=== PATIENT | male | born 1930 | race Asian ===

== ENCOUNTER → 2016-05-14 | Outpatient (CLI) | payer MEDICARE, OTHER ==
[~2016-05-14] MED LIST: ASPI81 PO; ATOR40TA28 PO; CARV12 PO; ESOM20CA31 PO; FINA5TAB41 PO; LISI40TA4 PO; METF500T4 PO; MULT-264 PO; NIFE60TA71 PO; TAMS0.4C32 PO
== END | disposition home or self-care (01) ==
LOC: LABPV 09:56
PROVIDERS: ATTEND Urology
DX: C61 Malignant neoplasm of prostate (principal)
CPT/HCPCS: 84153

== ENCOUNTER → 2016-08-23 | Outpatient (CLI) | payer MEDICARE, OTHER | END | disposition home or self-care (01) | LOC: RADMN 12:39 | PROVIDERS: ATTEND Physical Medicine & Rehabilitation Spinal Cord Injury Medicine | DX: M41.86 Other forms of scoliosis, lumbar region (principal); M51.86 Other intervertebral disc disorders, lumbar region; M48.06 Spinal stenosis, lumbar region; M43.16 Spondylolisthesis, lumbar region; M51.26 Other intervertebral disc displacement, lumbar region; Q05.7 Lumbar spina bifida without hydrocephalus; M54.17 Radiculopathy, lumbosacral region; M17.0 Bilateral primary osteoarthritis of knee | CPT/HCPCS: 72148 ==

== ENCOUNTER → 2016-09-12 | Outpatient (CLI) | payer MEDICARE, OTHER | END | disposition home or self-care (01) | LOC: RADMN 09:03 | PROVIDERS: ATTEND Physical Medicine & Rehabilitation Spinal Cord Injury Medicine | DX: I65.23 Occlusion and stenosis of bilateral carotid arteries (principal); I77.89 Other specified disorders of arteries and arterioles | CPT/HCPCS: 70544; 70547 ==

== ENCOUNTER → 2016-09-21 | Outpatient (CLI) | payer MEDICARE, OTHER | END | disposition home or self-care (01) | LOC: RADPV 12:35 | PROVIDERS: ATTEND Internal Medicine | DX: S93.401A Sprain of unspecified ligament of right ankle, initial encounter (principal); I70.201 Unspecified atherosclerosis of native arteries of extremities, right leg; M25.471 Effusion, right ankle; Z87.81 Personal history of (healed) traumatic fracture; X58.XXXA Exposure to other specified factors, initial encounter; Y93.9 Activity, unspecified; Y92.9 Unspecified place or not applicable; Y99.9 Unspecified external cause status ==

== ENCOUNTER 2016-11-03 12:36 | Emergency (ER) | payer MEDICARE, OTHER ==
[~2016-11-03] VITALS: Ht 165.1 cm; Wt 62.0 kg
[2016-11-03 13:02] LABS: GLUCOSE,POINT OF CARE 130 MG/DL (70-110)
[2016-11-03 13:18] LABS: BASOPHILS # (AUTO) 0.03 K/uL (0.00-0.20); BASOPHILS % (AUTO) 0.5 % (0.0-2.0); EOSINOPHILS # (AUTO) 0.23 K/uL (0.00-0.70); EOSINOPHILS % (AUTO) 4.14 % (1.0-6.0); HEMATOCRIT 38.5 % (41-53); HEMOGLOBIN 12.5 g/dL (13.5-17.5); LYMPHOCYTES # (AUTO) 1.6 K/uL (1.0-4.8); LYMPHOCYTES % (AUTO) 27.9 % (22.0-44.0); MEAN CORPUSCULAR HEMOGLOBIN 29.1 pg (26.0-34.0); MEAN CORPUSCULAR HGB CONC 32.5 G/dL (31.0-37.0); MEAN CORPUSCULAR VOLUME 90 fL (80-100); MONOCYTES # (AUTO) 0.6 K/uL (0.1-1.0); MONOCYTES % (AUTO) 10.4 % (2.0-9.0); NEUTROPHILS # (AUTO) 3.2 K/uL (1.8-7.7); NEUTROPHILS % (AUTO) 57.1 % (40.0-70.0); PLATELET COUNT (AUTO) 237 K/uL (150-450); WHITE BLOOD COUNT (AUTO) 5.6 K/uL (4.5-11.0)
[2016-11-03 13:28] LABS: APPEARANCE,URINE TURBID (CLEAR); GLUCOSE, URINE (UA) NEGATIVE (NEGATIVE); KETONES,URINE 15 mg/dL (NEGATIVE); LEUKOCYTE ESTERASE ,URINE MODERATE (NEGATIVE); OCCULT BLOOD,URINE LARGE (NEGATIVE); PROTEIN,URINE SEE CONFIRM (NEGATIVE)
[2016-11-03 13:31] LABS: ADD UA MICROSCOPIC YES
[2016-11-03 13:35] LABS: RBC,URINE Full Field /HPF (0-2); SULFOSALICYLIC ACID,URINE 3+ (Negative); WBC,URINE 26-50 /HPF (0-5)
[2016-11-03 14:26] LABS: CALCIUM, TOTAL 9.3 mg/dL (8.8-10.5); CREATININE 1.43 mg/dL (0.60-1.30)
[2016-11-03 15:00] VITALS: BP 125/78
[2016-11-03] MEDS ORDERED: LIDOCAINE HCL/PF 1% 2 ML VIAL IM ONE (15:00)
[2016-11-03] MEDS ORDERED: CefTRIAXone SODIUM 1 GM/VIAL IM ONE (15:00)
== END 2016-11-03 15:13 | disposition home or self-care (01) ==
LOC: EMS 12:38
DX: N39.0 Urinary tract infection, site not specified (principal); E11.9 Type 2 diabetes mellitus without complications; I10 Essential (primary) hypertension; Z85.46 Personal history of malignant neoplasm of prostate; Z79.82 Long term (current) use of aspirin; Z95.5 Presence of coronary angioplasty implant and graft
CPT/HCPCS: 36415; 80048; 81001; 82962; 85025; 87086; 96372; 99284; J0696; J3490

== ENCOUNTER → 2016-12-28 | Outpatient (CLI) | payer MEDICARE, OTHER ==
[~2016-12-28] MED LIST changes: -ATOR40TA28 PO; -ESOM20CA31 PO; -NIFE60TA71 PO
== END | disposition home or self-care (01) ==
LOC: RADPV 08:55
PROVIDERS: ATTEND Internal Medicine Cardiovascular Disease
DX: I08.0 Rheumatic disorders of both mitral and aortic valves (principal)
CPT/HCPCS: 93306

== ENCOUNTER 2017-02-04 09:34 | Emergency (ER) | payer MEDICARE, OTHER ==
[~2017-02-04] VITALS: Ht 165.1 cm; Wt 61.4 kg
[2017-02-04 09:45] VITALS: BP 142/73
[2017-02-04 09:52] LABS: GLUCOSE,POINT OF CARE 105 MG/DL (70-110)
== END 2017-02-04 11:12 | disposition left against medical advice (07) ==
LOC: EMS 09:34
DX: R10.9 Unspecified abdominal pain (principal); E11.9 Type 2 diabetes mellitus without complications; I10 Essential (primary) hypertension; Z95.1 Presence of aortocoronary bypass graft; Z53.21 Procedure and treatment not carried out due to patient leaving prior to being seen by health care provider
CPT/HCPCS: 82962

== ENCOUNTER → 2017-03-26 | Outpatient (CLI) | payer MEDICARE, OTHER | END | disposition home or self-care (01) | LOC: RADPV 08:49 | PROVIDERS: ATTEND Internal Medicine Cardiovascular Disease | DX: I70.203 Unspecified atherosclerosis of native arteries of extremities, bilateral legs (principal) | CPT/HCPCS: 93925 ==

== ENCOUNTER → 2017-04-19 | Outpatient (CLI) | payer MEDICARE, OTHER | END | disposition home or self-care (01) | LOC: RADPV 10:28 | PROVIDERS: ATTEND Internal Medicine | DX: R05 Cough (principal); I25.10 Atherosclerotic heart disease of native coronary artery without angina pectoris; I70.0 Atherosclerosis of aorta | CPT/HCPCS: 71046 ==

== ENCOUNTER → 2017-08-16 | Outpatient (CLI) | payer MEDICARE, OTHER ==
[~2017-08-16] MED LIST changes: -METF500T4 PO; +METF500T6 PO
== END | disposition home or self-care (01) ==
LOC: RADMN 08:30
PROVIDERS: ATTEND Internal Medicine
DX: I67.82 Cerebral ischemia (principal); R90.82 White matter disease, unspecified
CPT/HCPCS: 70551

== ENCOUNTER → 2017-10-08 | Outpatient (CLI) | payer MEDICARE, OTHER | END | disposition home or self-care (01) | LOC: RADPV 09:52 | PROVIDERS: ATTEND Internal Medicine | DX: N18.3 Chronic kidney disease, stage 3 (moderate) (principal); N40.1 Benign prostatic hyperplasia with lower urinary tract symptoms | CPT/HCPCS: 76770 ==

== ENCOUNTER → 2017-12-04 | Outpatient (CLI) | payer MEDICARE, OTHER ==
[2017-12-04 15:07] LABS: BASOPHILS % (AUTO) 0.6 % (0.0-2.0); EOSINOPHILS % (AUTO) 4.7 % (1.0-6.0); HEMATOCRIT 36.6 % (41-53); HEMOGLOBIN 11.8 g/dL (13.5-17.5); LYMPHOCYTES # (AUTO) 1.8 K/uL (1.0-4.8); LYMPHOCYTES % (AUTO) 34.3 % (22.0-44.0); MEAN CORPUSCULAR HEMOGLOBIN 26.7 pg (26.0-34.0); MEAN CORPUSCULAR HGB CONC 32.3 G/dL (31.0-37.0); MEAN CORPUSCULAR VOLUME 83 fL (80-100); MONOCYTES # (AUTO) 0.6 K/uL (0.1-1.0); MONOCYTES % (AUTO) 11.3 % (2.0-9.0); NEUTROPHILS # (AUTO) 2.6 K/uL (1.8-7.7); NEUTROPHILS % (AUTO) 49.1 % (40.0-70.0); PLATELET COUNT (AUTO) 223 K/uL (150-450); RED BLOOD CELL COUNT(AUTO) 4.42 MIL/uL (4.50-5.90); RED CELL DISTRIBUTION WIDTH 15.5 % (11.5-14.5)
[2017-12-04 15:26] LABS: ALBUMIN 3.5 g/dL (3.4-5.0); BILIRUBIN,TOTAL 0.3 mg/dL (0.1-1.0); CALCIUM, TOTAL 8.9 mg/dL (8.8-10.5); CHOL/HDL RATIO 2.5 (4.2-7.3); CREATININE 1.66 mg/dL (0.60-1.30); THYROID STIMULATING HORMONE 1.27 uIU/mL (0.36-3.74); TOTAL PROTEIN, SERUM 7.3 g/dL (6.4-8.2)
[2017-12-04 15:57] LABS: PROSTATE SPECIFIC ANTIGEN 0.45 ng/mL (0.00-4.00)
== END | disposition home or self-care (01) ==
LOC: LABPV 11:49
PROVIDERS: ATTEND Internal Medicine
DX: D29.1 Benign neoplasm of prostate (principal); I10 Essential (primary) hypertension; E78.2 Mixed hyperlipidemia; Z85.46 Personal history of malignant neoplasm of prostate
CPT/HCPCS: 84153; 84443

== ENCOUNTER → 2018-02-10 | Outpatient (CLI) | payer MEDICARE, OTHER ==
[~2018-02-10] MED LIST changes: +METF-960 PO; -METF500T6 PO
[2018-02-10 15:39] LABS: BASOPHILS % (AUTO) 0.9 % (0.0-2.0); HEMATOCRIT 36.2 % (41-53); HEMOGLOBIN 11.6 g/dL (13.5-17.5); LYMPHOCYTES # (AUTO) 2.1 K/uL (1.0-4.8); LYMPHOCYTES % (AUTO) 35.3 % (22.0-44.0); MEAN CORPUSCULAR HEMOGLOBIN 26.4 pg (26.0-34.0); MEAN CORPUSCULAR HGB CONC 32.1 G/dL (31.0-37.0); MEAN CORPUSCULAR VOLUME 82 fL (80-100); MONOCYTES # (AUTO) 0.6 K/uL (0.1-1.0); MONOCYTES % (AUTO) 10.4 % (2.0-9.0); NEUTROPHILS % (AUTO) 49.4 % (40.0-70.0); PLATELET COUNT (AUTO) 232 K/uL (150-450); RED BLOOD CELL COUNT(AUTO) 4.41 MIL/uL (4.50-5.90); RED CELL DISTRIBUTION WIDTH 16.1 % (11.5-14.5)
[2018-02-10 16:10] LABS: ALBUMIN 3.8 g/dL (3.4-5.0); BILIRUBIN,TOTAL 0.3 mg/dL (0.1-1.0); CALCIUM, TOTAL 8.9 mg/dL (8.8-10.5); CHOL/HDL RATIO 2.6 (4.2-7.3); CREATININE 1.39 mg/dL (0.60-1.30); THYROID STIMULATING HORMONE 1.68 uIU/mL (0.36-3.74); TOTAL PROTEIN, SERUM 7.7 g/dL (6.4-8.2)
[2018-02-10 16:49] LABS: PROSTATE SPECIFIC ANTIGEN 0.44 ng/mL (0.00-4.00)
== END | disposition home or self-care (01) ==
LOC: LABPV 14:59
PROVIDERS: ATTEND Internal Medicine
DX: E78.2 Mixed hyperlipidemia (principal); E11.9 Type 2 diabetes mellitus without complications; I10 Essential (primary) hypertension; Z85.46 Personal history of malignant neoplasm of prostate
CPT/HCPCS: 82043; 82570; 83036; 84153; 84443

== ENCOUNTER → 2018-06-10 | Outpatient (CLI) | payer MEDICARE, OTHER | END | disposition home or self-care (01) | LOC: RADPV 09:20 | PROVIDERS: ATTEND Internal Medicine Nephrology | DX: I12.9 Hypertensive chronic kidney disease with stage 1 through stage 4 chronic kidney disease, or unspecified chronic kidney disease (principal); E11.22 Type 2 diabetes mellitus with diabetic chronic kidney disease; N18.9 Chronic kidney disease, unspecified | CPT/HCPCS: 76770 ==

== ENCOUNTER → 2018-06-30 | Outpatient (CLI) | payer MEDICARE, OTHER ==
[2018-06-30 10:14] LABS: HEMATOCRIT 37.2 % (41-53); HEMOGLOBIN 11.6 g/dL (13.5-17.5)
[2018-06-30 10:26] LABS: ALBUMIN 3.8 g/dL (3.4-5.0); BILIRUBIN,TOTAL 0.3 mg/dL (0.1-1.0); CALCIUM, TOTAL 9.4 mg/dL (8.8-10.5); CREATININE 1.46 mg/dL (0.60-1.30); POTASSIUM 3.5 mmol/L (3.5-5.1); TOTAL PROTEIN, SERUM 7.7 g/dL (6.4-8.2)
[2018-06-30 10:53] LABS: APPEARANCE,URINE CLEAR (CLEAR); BILIRUBIN,URINE NEGATIVE (NEGATIVE); GLUCOSE, URINE (UA) NEGATIVE (NEGATIVE); KETONES,URINE NEGATIVE (NEGATIVE); LEUKOCYTE ESTERASE ,URINE NEGATIVE (NEGATIVE); NITRATE,URINE NEGATIVE (NEGATIVE); OCCULT BLOOD,URINE SMALL (NEGATIVE); PH,URINE 5.5 (5.0-8.0); PROTEIN,URINE SEE CONFIRM (NEGATIVE); UROBILINOGEN,URINE 0.2 mg/dL (<=1.0)
[2018-06-30 11:23] LABS: SULFOSALICYLIC ACID,URINE 1+ (Negative)
[2018-06-30 11:24] LABS: BACTERIA,URINE None Seen /HPF (None Seen); RBC,URINE 0-2 /HPF (0-2); SQUAMOUS EPITHELIAL CELL,UR Few /LPF (None Seen); WBC,URINE None Seen /HPF (0-5)
[2018-06-30 12:20] LABS: CREATININE,URINE 75.2 mg/dL (30.0-125.0)
[2018-06-30 12:28] LABS: CREATININE,SERUM FOR CRCL 1.46 mg/dL (0.60-1.30)
== END | disposition home or self-care (01) ==
LOC: LABPV 09:22
PROVIDERS: ATTEND Internal Medicine Nephrology
DX: I12.9 Hypertensive chronic kidney disease with stage 1 through stage 4 chronic kidney disease, or unspecified chronic kidney disease (principal); E11.22 Type 2 diabetes mellitus with diabetic chronic kidney disease; N18.9 Chronic kidney disease, unspecified; D63.1 Anemia in chronic kidney disease
CPT/HCPCS: 81050; 82575; 83036; 84156; 84300; 85014; 85018

== ENCOUNTER → 2018-07-15 | Outpatient (CLI) | payer MEDICARE, OTHER | END | disposition home or self-care (01) | LOC: RADPV 08:29 | PROVIDERS: ATTEND Internal Medicine Nephrology | DX: I65.23 Occlusion and stenosis of bilateral carotid arteries (principal); I77.1 Stricture of artery | CPT/HCPCS: 93880 ==

== ENCOUNTER → 2018-11-10 | Outpatient (CLI) | payer MEDICARE, OTHER ==
[2018-11-10 13:03] LABS: CALCIUM, TOTAL 9.6 mg/dL (8.8-10.5); CREATININE 1.8 mg/dL (0.60-1.30); PHOSPHORUS 3.9 mg/dL (2.5-4.9); POTASSIUM 3.8 mmol/L (3.5-5.1)
[2018-11-10 13:11] LABS: CREATININE,URINE RANDOM 100.7 mg/dL (30.0-125.0)
[2018-11-11 08:45] LABS: IGM (IMMUNOFIXATION) 38 mg/dL (15-143)
[2018-11-12 11:13] LABS: ALPHA-1 URINE 11.8 %
== END | disposition home or self-care (01) ==
LOC: LABPV 11:12
PROVIDERS: ATTEND Internal Medicine Nephrology
DX: I12.9 Hypertensive chronic kidney disease with stage 1 through stage 4 chronic kidney disease, or unspecified chronic kidney disease (principal); E11.22 Type 2 diabetes mellitus with diabetic chronic kidney disease; N18.3 Chronic kidney disease, stage 3 (moderate)
CPT/HCPCS: 82570; 82784; 83970; 84100; 84156; 84166; 86160; 86334; 86335

== ENCOUNTER → 2018-11-21 | Outpatient (CLI) | payer MEDICARE, OTHER ==
[2018-11-21 11:52] LABS: BASOPHILS % (AUTO) 0.6 % (0.0-2.0); EOSINOPHILS % (AUTO) 3.7 % (1.0-6.0); HEMATOCRIT 35.8 % (41-53); HEMOGLOBIN 11.2 g/dL (13.5-17.5); LYMPHOCYTES # (AUTO) 1.7 K/uL (1.0-4.8); LYMPHOCYTES % (AUTO) 39.9 % (22.0-44.0); MEAN CORPUSCULAR HEMOGLOBIN 25.6 pg (26.0-34.0); MEAN CORPUSCULAR HGB CONC 31.3 G/dL (31.0-37.0); MEAN CORPUSCULAR VOLUME 82 fL (80-100); MONOCYTES # (AUTO) 0.6 K/uL (0.1-1.0); MONOCYTES % (AUTO) 13.6 % (2.0-9.0); NEUTROPHILS # (AUTO) 1.8 K/uL (1.8-7.7); NEUTROPHILS % (AUTO) 42.2 % (40.0-70.0); PLATELET COUNT (AUTO) 229 K/uL (150-450); RED BLOOD CELL COUNT(AUTO) 4.37 MIL/uL (4.50-5.90); RED CELL DISTRIBUTION WIDTH 16.9 % (11.5-14.5)
[2018-11-21 12:14] LABS: HEMOGLOBIN A1C 6.4 % (4.5-6.2)
[2018-11-21 13:05] LABS: ALBUMIN 3.7 g/dL (3.4-5.0); BILIRUBIN,TOTAL 0.4 mg/dL (0.1-1.0); CALCIUM, TOTAL 8.9 mg/dL (8.8-10.5); CHOL/HDL RATIO 2.7 (4.2-7.3); CREATININE 1.72 mg/dL (0.60-1.30); POTASSIUM 4.1 mmol/L (3.5-5.1); TOTAL PROTEIN, SERUM 7.2 g/dL (6.4-8.2)
== END | disposition home or self-care (01) ==
LOC: LABPV 10:06
PROVIDERS: ATTEND Internal Medicine
DX: E78.2 Mixed hyperlipidemia (principal); I12.9 Hypertensive chronic kidney disease with stage 1 through stage 4 chronic kidney disease, or unspecified chronic kidney disease; E11.22 Type 2 diabetes mellitus with diabetic chronic kidney disease; N18.3 Chronic kidney disease, stage 3 (moderate)
CPT/HCPCS: 82043; 82570; 83036

== ENCOUNTER → 2019-01-12 | Outpatient (CLI) | payer MEDICARE, OTHER ==
[~2019-01-12] MED LIST changes: +TAMS-13 PO; -TAMS0.4C32 PO
[2019-01-12 10:45] LABS: CALCIUM, TOTAL 9.2 mg/dL (8.8-10.5); CHOL/HDL RATIO 2.5 (4.2-7.3); CREATININE 1.59 mg/dL (0.60-1.30); POTASSIUM 4.1 mmol/L (3.5-5.1)
[2019-01-12 10:56] LABS: APPEARANCE,URINE CLOUDY (CLEAR); BILIRUBIN,URINE NEGATIVE (NEGATIVE); GLUCOSE, URINE (UA) NEGATIVE (NEGATIVE); KETONES,URINE NEGATIVE (NEGATIVE); LEUKOCYTE ESTERASE ,URINE NEGATIVE (NEGATIVE); NITRATE,URINE NEGATIVE (NEGATIVE); OCCULT BLOOD,URINE SMALL (NEGATIVE); PROTEIN,URINE SEE CONFIRM (NEGATIVE); UROBILINOGEN,URINE 0.2 mg/dL (<=1.0)
[2019-01-12 11:00] LABS: CREATININE,URINE RANDOM 152.3 mg/dL (30.0-125.0); PROTEIN,URINE RANDOM 126 mg/dL (0-11.9)
[2019-01-12 11:12] LABS: BACTERIA,URINE None Seen /HPF (None Seen); HYALINE CASTS, URINE 0-2 /LPF (None Seen); RBC,URINE None Seen /HPF (0-2); SQUAMOUS EPITHELIAL CELL,UR Few /LPF (None Seen); SULFOSALICYLIC ACID,URINE 1+ (Negative); WBC,URINE 0-2 /HPF (0-5)
== END | disposition home or self-care (01) ==
LOC: LABPV 07:47
PROVIDERS: ATTEND Internal Medicine Nephrology
DX: I25.10 Atherosclerotic heart disease of native coronary artery without angina pectoris (principal); R80.9 Proteinuria, unspecified; I12.9 Hypertensive chronic kidney disease with stage 1 through stage 4 chronic kidney disease, or unspecified chronic kidney disease; E11.22 Type 2 diabetes mellitus with diabetic chronic kidney disease; N18.9 Chronic kidney disease, unspecified
CPT/HCPCS: 82570; 83970; 84100; 84156

== ENCOUNTER → 2019-04-29 | Outpatient (CLI) | payer MEDICARE, OTHER ==
[2019-04-29 10:49] LABS: CREATININE,URINE RANDOM 129.7 mg/dL (30.0-125.0)
[2019-04-29 10:49] LABS: CALCIUM, TOTAL 9.2 mg/dL (8.8-10.5); CREATININE 1.69 mg/dL (0.60-1.30)
[2019-04-29 10:51] LABS: HEMOGLOBIN A1C 6.6 % (4.5-6.2)
[2019-04-30 08:29] LABS: IGM (IMMUNOFIXATION) 47 mg/dL (15-143)
[2019-05-01 15:17] LABS: ALPHA-1 URINE 8.9 %; ALPHA-2 URINE 17.4 %
== END | disposition home or self-care (01) ==
LOC: LABPV 08:17
PROVIDERS: ATTEND Internal Medicine Nephrology
DX: R80.9 Proteinuria, unspecified (principal); I12.9 Hypertensive chronic kidney disease with stage 1 through stage 4 chronic kidney disease, or unspecified chronic kidney disease; E11.22 Type 2 diabetes mellitus with diabetic chronic kidney disease; N18.9 Chronic kidney disease, unspecified
CPT/HCPCS: 82570; 82784; 83036; 84156; 84166; 86160; 86334; 86335

== ENCOUNTER → 2020-03-07 | Outpatient (CLI) | payer MEDICARE, OTHER ==
[~2020-03-07] MED LIST changes: +ASPI-728 PO; -ASPI81 PO; +FINA-27 PO; -FINA5TAB41 PO
[2020-03-07 09:56] LABS: ALBUMIN 3.5 g/dL (3.4-5.0); BILIRUBIN,TOTAL 0.3 mg/dL (0.1-1.0); CALCIUM, TOTAL 9.1 mg/dL (8.8-10.5); CHOL/HDL RATIO 2.3 (4.2-7.3); CREATININE 1.76 mg/dL (0.60-1.30); PHOSPHORUS 3.4 mg/dL (2.5-4.9); POTASSIUM 3.9 mmol/L (3.5-5.1); TOTAL PROTEIN, SERUM 7.4 g/dL (6.4-8.2)
[2020-03-07 10:21] LABS: CREATININE,URINE RANDOM 126.9 mg/dL (30.0-125.0)
== END | disposition home or self-care (01) ==
LOC: LABPV 07:32
PROVIDERS: ATTEND Internal Medicine Nephrology
DX: N18.30 Chronic kidney disease, stage 3 unspecified (principal); R80.9 Proteinuria, unspecified; E78.5 Hyperlipidemia, unspecified
CPT/HCPCS: 82570; 83970; 84100; 84156

== ENCOUNTER → 2020-04-22 | Outpatient (CLI) | payer MEDICARE, OTHER | END | disposition home or self-care (01) | LOC: LABPV 08:28 | PROVIDERS: ATTEND Urology | DX: C61 Malignant neoplasm of prostate (principal) | CPT/HCPCS: 84153 ==